=== PATIENT | male | born 1985 | race Caucasian/White ===

== ENCOUNTER 2024-02-13 17:23 | Emergency (ER) | payer OTHER ==
[~2024-02-13] VITALS: Ht 172.7 cm; Wt 85.0 kg
[2024-02-13 17:26] VITALS: O2SAT 98
[2024-02-13] MEDS ORDERED: ACETAMINOPHEN 325MG TABLET PO ONE (18:30)
[2024-02-13] MEDS: ACETAMINOPHEN 325MG TABLET PO NR (21:27)
[2024-02-13 22:21] VITALS: BP 130/77; PULSE 72; RESP 20; TEMP 98.7
== END 2024-02-13 22:23 | disposition home or self-care (01) ==
LOC: ER 17:23
DX: R51.9 Headache, unspecified (principal); V98.8XXA Other specified transport accidents, initial encounter; Y93.89 Activity, other specified; Y92.89 Other specified places as the place of occurrence of the external cause; Y99.8 Other external cause status
CPT/HCPCS: 99284